=== PATIENT | male | born 1985 | race Caucasian/White ===

== ENCOUNTER 2019-06-20 15:34 | Emergency (ER) | payer SELFPAY ==
[~2019-06-20] VITALS: Ht 177.8 cm; Wt 68.0 kg
[2019-06-20] MEDS ORDERED: LORAZEPAM 2MG/ML CPJ ONE (16:09)
[2019-06-20] MEDS ORDERED: SODIUM CHLORIDE 0.9% 1,000 ML IV ONE ×2 (16:15→18:34)
[2019-06-20] MEDS ORDERED: LORAZEPAM 2MG/ML CPJ IV STA (16:15)
[2019-06-20] MEDS ORDERED: ONDANSETRON HCL 4MG/2ML INJ IV STA (16:15)
[2019-06-20] MEDS ORDERED: TETANUS, DIPHTHERIA, PERTUSSIS VAC/PF 0.5ML (>7YR OLD) IM ONE (16:45)
[2019-06-20] MEDS ORDERED: LIDOCAINE HCL/EPINEPHRINE 1%-EPI 1:100,000 20 ML VIAL INFIL NR (16:45)
[2019-06-20] MEDS ORDERED: BACITRACIN ZINC OINT UDPKT TOP ONE (16:45)
[2019-06-20] MEDS ORDERED: OLANZAPINE 10 MG/VIAL IM ONE (16:45)
[2019-06-20] MEDS ORDERED: LIDOCAINE 1%/EPI 1:100,000 10 ML VIAL IJ ONE (16:45)
[2019-06-20] MEDS ORDERED: LORAZEPAM 2MG/ML CPJ IV ONE (16:45)
[2019-06-20 16:59] LABS: BG BASE EXCESS -2.8 mmol/L (-2.0-2.0); BG CARBOXYHEMOGLOBIN 0.3 % (0.5-1.5); BG DEOXYHEMOGLOBIN 3.1 % (0.0-5.0); BG FRACTION INSPIRED OXYGEN 21; BG HCO3 ACT 20.5 mmol/L (22.0-26.0); BG METHEMOGLOBIN 0.2 % (0.0-1.5); BG OXYGEN SATURATION 96.9 % (92.0-98.5); BG OXYHEMOGLOBIN 96.4 % (94.0-97.0); BG PCO2 31.8 mmHg (35.0-45.0); BG PH 7.428 (7.350-7.450); BG PO2 95.6 mmHg (75.0-100.0); BG SAMPLE SITE RIGHT BRACHIAL; BG TOTAL HEMOGLOBIN 13.6 g/dL (12.0-18.0); BG VENT MODE ROOM AIR
[2019-06-20 17:14] LABS: BASOPHILS % 0.2 % (0.0-2.0); EOSINOPHILS % 0.2 % (0.0-5.0); HEMATOCRIT. 40.8 % (42.0-52.0); HEMOGLOBIN. 13.4 g/dL (14.0-18.0); LYMPHOCYTES % 7.1 % (20.0-50.0); MEAN CORPUSCULAR HEMOGLOBIN 28.3 pg (28.0-32.0); MEAN CORPUSCULAR VOLUME 86.2 fL (80.0-94.0); MEAN PLATELET VOLUME 7.3 fl (7.4-10.4); MONOCYTES % 8.3 % (2.0-8.0); NEUTROPHILS % 84.2 % (40.0-76.0); PLATELET 277 x1000/uL (130-400); RED BLOOD CELL COUNT 4.73 mill/uL (4.7-6.1); RED CELL DISTRIBUTION WIDTH 15.9 % (11.6-14.6)
[2019-06-20 17:19] LABS: CHLORIDE 110 mEq/L (98-107)
[2019-06-20 17:23] LABS: ETHANOL BLOOD < 10 mg/dL
[2019-06-20 17:28] LABS: CREATINE KINASE 104 IU/L (39-308)
[2019-06-20 18:11] LABS: CLARITY URINE CLEAR (CLEAR); COLOR URINE YELLOW (YELLOW); KETONES URINE NEGATIVE (NEGATIVE); LEUKOCYTE ESTERASE URINE NEGATIVE (NEGATIVE); NITRITE URINE NEGATIVE (NEGATIVE); OCCULT BLOOD URINE NEGATIVE (NEGATIVE); PH URINE 5.5 (4.5-8.0); PROTEIN URINE TRACE (NEGATIVE); SPECIFIC GRAVITY URINE 1.031 (1.005-1.030); UROBILINOGEN URINE 0.2 E.U./dL (0.2-1.0)
[2019-06-20 18:27] LABS: *BARBITURATES SCREEN URINE NEGATIVE (NEGATIVE); *BENZODIAZEPINES SCREEN URINE PRESUMTIVE POSITIVE (NEGATIVE); *COCAINE SCREEN URINE NEGATIVE (NEGATIVE)
[2019-06-20 18:28] LABS: CANNABINOID URINE SCREEN PRESUMTIVE POSITIVE (NEGATIVE); METHADONE URINE SCREEN NEGATIVE (NEGATIVE); OPIATES URINE SCREEN NEGATIVE (NEGATIVE); PHENCYCLIDINE URINE SCREEN NEGATIVE (NEGATIVE)
[2019-06-20 18:30] LABS: *AMPHETAMINES SCREEN URINE PRESUMTIVE POSITIVE (NEGATIVE)
[2019-06-21 00:18] LABS: CHLORIDE 116 mEq/L (98-107)
[2019-06-21 00:33] LABS: CREATINE KINASE 518 IU/L (39-308)
[2019-06-21 00:35] LABS: CREATINE KINASE MB FRACTION 1.2 ng/mL (0.5-3.6)
[2019-06-21] MEDS ORDERED: CLONAZEPAM 1MG TABLET PO ONE ×2 (13:30→19:15)
[2019-06-21] MEDS ORDERED: RISPERIDONE 1MG TABLET PO SCH (13:30)
[2019-06-22] MEDS ORDERED: LORAZEPAM 2MG/ML CPJ IM NR (01:30)
[2019-06-22] MEDS ORDERED: LORAZEPAM 1MG TABLET PO ONE (09:15)
[2019-06-22] MEDS ORDERED: IBUPROFEN 600MG TABLET PO ONE (09:15)
[2019-06-22 13:20] VITALS: BP 122/78
== END 2019-06-22 13:37 | disposition home or self-care (01) ==
LOC: ER 15:34
DX: T43.621A Poisoning by amphetamines, accidental (unintentional), initial encounter (principal); S01.01XA Laceration without foreign body of scalp, initial encounter; S60.312A Abrasion of left thumb, initial encounter; S60.311A Abrasion of right thumb, initial encounter; G92 Toxic encephalopathy; G40.909 Epilepsy, unspecified, not intractable, without status epilepticus; R06.82 Tachypnea, not elsewhere classified; R00.0 Tachycardia, unspecified; Z98.890 Other specified postprocedural states; X58.XXXA Exposure to other specified factors, initial encounter; Y93.89 Activity, other specified; Y92.89 Other specified places as the place of occurrence of the external cause; Y99.8 Other external cause status
CPT/HCPCS: 12001; 36415; 36600; 70450; 71045; 80053; 80305; 80307; 80320; 80329; 81003; 82140; 82375; 82550; 82553; 82805; 83690; 84443; 84484; 85025; 90471; 90715; 93005; 96372; 96374; 96375; 99284; A4217; J2060; J2405; J3490; J7030; Z7610; G0480